=== PATIENT | male | born 1935 | race Caucasian/White ===

== ENCOUNTER 2017-02-03 23:42 | Emergency (ER) | payer MEDICARE, BC ==
[~2017-02-03] VITALS: Ht 180.3 cm; Wt 90.0 kg
[2017-02-03 23:57] VITALS: BP 128/72; PULSE 65; RESP 20; TEMP 98.3
[2017-02-03] MEDS ORDERED: ASPI81CH7 CHEW (23:57)
[2017-02-03] MEDS ORDERED: ALLO300T2 PO (23:57)
--- NOTE | 2017-02-04 00:20 | PD ---
HPI Chief Complaint: Laceration/Skin Injury Time Seen by Provider: 23:57 Travel History International Travel<30 days: No Contact w/Intl Traveler<30days: No Traveled to known affect area: No History of Present Illness HPI Diagnoses a 81-year-old male with a history of gout, who is visiting here from [place]. The patient was in the shower at his hotel when he slipped and fell and struck the back of in front of his head on a shelf outside the shower. The patient denies any loss of consciousness. He reports pain at the front and back of his head. He denies any neck pain. He denies any loss of consciousness. He denies any numbness or tingling of his extremities. He states his last tetanus shot was within 5 years. He does take an aspirin a day but denies any blood thinners. There are no other areas of pain or reported injuries. PFSH Past Medical History Diminished Hearing: Yes Gout: Yes Tetanus Vaccination: < 5 Years Influenza Vaccination: Yes Social History Alcohol Use: Yes (5 week) Tobacco Use: No Substance Use: No Allergies-Medications (Allergen,Severity, Reaction): Coded Allergies: No Known Allergies (Unverified , 02/03/17) Reported Meds & Prescriptions Reported Meds & Active Scripts Active Reported Allopurinol 300 Mg Tab 300 Mg PO DAILY Aspirin Children's (Aspirin) 81 Mg Chew 81 Mg CHEW DAILY Review of Systems Eyes: No: Diploplia, Blurred Vision HENT: Positive: Headaches, Lightheadedness (earlier.), No: Neck Stiffness, Neck Pain (stated occiput and forehead) Cardiovascular: No: Chest Pain or Discomfort, Palpitations Respiratory: No: Cough, Shortness of Breath Gastrointestinal: No: Nausea, Vomiting, Abdominal Pain Musculoskeletal: No: Weakness, Pain Neurologic: Positive: Dizziness (earlier.), Headache, No: Weakness, Focal Abnormalities, Change in Mentation, Sensory Disturbance Physical Exam Narrative GENERAL: Well developed well-nourished male in no acute respiratory distress. SKIN: Focused skin assessment warm/dry. HEAD: Normocephalic. Patient has a abrasion to his forehead. There is also a three-quarter centimeters laceration to the posterior occiput. EYES: No scleral icterus. No injection or drainage. ENT: No nasal bleeding or discharge. Mucous membranes pink and moist. NECK: Trachea midline. Supple. CARDIOVASCULAR: Regular rate and rhythm. No murmur appreciated. RESPIRATORY: No accessory muscle use. Clear to auscultation. Breath sounds equal bilaterally. GASTROINTESTINAL: Abdomen soft, non-tender, nondistended. MUSCULOSKELETAL: No obvious deformities. No clubbing. No cyanosis. No edema. NEUROLOGICAL: Awake and alert. No obvious cranial nerve deficits. Motor grossly within normal limits. Normal speech. PSYCHIATRIC: Appropriate mood and affect; insight and judgment normal. Data Data Last Documented VS Vital Signs Date Time Temp Pulse Resp B/P (MAP) Pulse Ox O2 Delivery O2 Flow Rate FiO2 02/04/17 01:24 68 20 114/58 (76) 98 Room Air 02/03/17 23:[address] Brain W/O Iv Contrast(Rout) (02/03/17 23:57) Ct Cerv Spine W/O Contrast (02/03/17 23:57) Complete Blood Count With Diff (02/03/17 23:57) Iv Access Insert/Monitor (02/03/17 23:57) Labs Laboratory Tests Test 02/04/17 00:05 White Blood Count 7.7 TH/MM3 Red Blood Count 4.26 MIL/MM3 Hemoglobin 14.3 GM/DL Hematocrit 40.8 % Mean Corpuscular Volume 95.6 FL Mean Corpuscular Hemoglobin 33.6 PG Mean Corpuscular Hemoglobin Concent 35.1 % Red Cell Distribution Width 13.1 % Platelet Count 149 TH/MM3 Mean Platelet Volume 8.9 FL Neutrophils (%) (Auto) 72.2 % Lymphocytes (%) (Auto) 16.1 % Monocytes (%) (Auto) 8.7 % Eosinophils (%) (Auto) 2.8 % Basophils (%) (Auto) 0.2 % Neutrophils # (Auto) 5.5 TH/MM3 Lymphocytes # (Auto) 1.2 TH/MM3 Monocytes # (Auto) 0.7 TH/MM3 Eosinophils # (Auto) 0.2 TH/MM3 Basophils # (Auto) 0.0 TH/MM3 CBC Comment DIFF FINAL Differential Comment MDM Medical Decision Making Medical Screen Exam Complete: Yes Emergency Medical Condition: Yes Differential Diagnosis Concussion versus intracranial hemorrhage versus scalp abrasion versus scalp laceration Narrative Course 81-year-old gentleman who presents after slipping and falling in the shower. Patient had a laceration to the back of his head. He has had a bruise to his midforehead. The patient has had the laceration repaired. He will not be placed on antibiotics as is it is very vascular. He's been ambulated throughout the department without difficulty. Diagnosis Primary Impression: Closed head injury Additional Impressions: posterior scalp laceration mechanical fall Additional Instructions: Keep wound clean and dry. Scalp diana removed in 5-7 days. Avoid heavy exertional activity. Return if feeling worse. Med/Other Pt SpecificInfo: Other (Head injury sheet) Disposition: 01 DISCHARGE HOME Condition: Stable Trevor Francis MD Feb 04, 2017 00:20
[2017-02-04 00:24] LABS: AUTOMATED NEUTROPHIL # 5.5 TH/MM3 (1.8-7.7); BASOPHIL % 0.2 % (0.0-2.0); EOSINOPHIL # 0.2 TH/MM3 (0-0.4); EOSINOPHIL % 2.8 % (0.0-4.0); HEMATOCRIT 40.8 % (39.0-51.0); HEMO FLAGS DIFF FINAL; LYMPH % 16.1 % (9.0-44.0); LYMPHOCYTE # 1.2 TH/MM3 (1.0-4.8); MEAN CELL VOLUME 95.6 FL (80.0-100.0); MEAN CORPUSCULAR HEMOGLOBIN 33.6 PG (27.0-34.0); MEAN CORPUSCULAR HGB CONC 35.1 % (32.0-36.0); MONO % 8.7 % (0.0-8.0); NEUT % 72.2 % (16.0-70.0); PLATELET COUNT 149 TH/MM3 (150-450); RED BLOOD COUNT 4.26 MIL/MM3 (4.50-5.90); RED CELL DISTRIBUTION WIDTH 13.1 % (11.6-17.2); WHITE BLOOD COUNT 7.7 TH/MM3 (4.0-11.0)
--- NOTE | 2017-02-04 00:54 | RADRPT ---
EXAM DATE/TIME: 02/04/2017 00:37 [facility] COMPARISON: No previous studies available for comparison. INDICATIONS : Trauma. Fall. Laceration back of head. RADIATION DOSE: 45.54 CTDIvol (mGy) MEDICAL HISTORY : None SURGICAL HISTORY : None. ENCOUNTER: Initial ACUITY: 1 day PAIN SCALE: 5/10 LOCATION: cranial TECHNIQUE: Multiple contiguous axial images were obtained of the head. Using automated exposure control and adj ustment of the mA and/or kV according to patient size, radiation dose was kept as low as reasonably a chievable to obtain optimal diagnostic quality images. DICOM format image data is available electro nically for review and comparison. FINDINGS: CEREBRUM: The ventricles are normal for age. No evidence of midline shift, mass lesion, hemorrhage or acute in farction. No extra-axial fluid collections are seen. POSTERIOR FOSSA: The cerebellum and brainstem are intact. The 4th ventricle is midline. The cerebellopontine angle i s unremarkable. EXTRACRANIAL: The visualized portion of the orbits is intact. There is mucosal disease in the ethmoid air cells zion aterally SKULL: The calvaria is intact. No evidence of skull fracture. CONCLUSION: 1. No evidence of acute intracranial pathology. No masses are identified. Sinus disease as above Yared Hoskins MD on February 04, 2017 at 0:52 Board Certified Radiologist. This report was verified electronically.
--- NOTE | 2017-02-04 00:58 | RADRPT ---
EXAM DATE/TIME: 02/04/2017 00:37 [facility] COMPARISON: No previous studies available for comparison. INDICATIONS : Trauma. Fall. RADIATION DOSE: 19.33 CTDIvol (mGy) MEDICAL HISTORY : None SURGICAL HISTORY : None. ENCOUNTER: Initial ACUITY: 1 day PAIN SCALE: 0/10 LOCATION: neck TECHNIQUE: Volumetric scanning of the cervical spine was performed. Multiplanar reconstructions in the sagittal, coronal and oblique axial planes were performed. Using automated exposure control and adjustment o f the mA and/or kV according to patient size, radiation dose was kept as low as reasonably achievable to obtain optimal diagnostic quality images. DICOM format image data is available electronically f or review and comparison. FINDINGS: CT of the cervical spine was performed in sagittal and axial planes. There is anterolisthesis likely related to facet arthritis at C5-C6 of 2-3 mm. There is multilevel disc space narrowing and marginal osteophyte formation maximal at C6-C7. 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 No focal areas of marrow replacement are identified. The cranioc ervical junction appears normal. C2-C3: There is osteophytic ridging along the posterior aspect of vertebral body. There is mild facet arthri tis bilaterally. The neural foramina are clear bilaterally. C3-C4: There is no evidence of disc protrusion or spinal canal stenosis. There is mild facet arthritis bilat erally. C4-C5: There is uncovertebral joint hypertrophy on left side. There is severe facet arthritis on the left. T he neural foramina are clear bilaterally. There is no significant spinal canal stenosis. C5-C6: There is osteophytic ridging asymmetric to the left. There is moderate facet arthritis on the left. T he neural foramina are clear bilaterally. C6-C7: There is osteophytic ridging along the posterior aspect of vertebral body. There is no significant sp inal canal stenosis. There is mild left sided neural foraminal narrowing. C7-T1: There is no evidence of disc protrusion or spinal canal stenosis. There is mild facet arthritis bilat erally. CONCLUSION: 1. Moderate degenerative changes as described above. There is no evidence of acute fracture. Yared Hoskins MD on February 04, 2017 at 0:54 Board Certified Radiologist. This report was verified electronically.
--- NOTE | 2017-02-04 01:19 | PD ---
Physical Exam Date Seen by Provider: Feb 04, 2017 Time Seen by Provider: 01:18 Narrative For full history and physical examination please see previous provider note. I was asked to repair laceration to the posterior scalp. Data Data Last Documented VS Vital Signs Date Time Temp Pulse Resp B/P (MAP) Pulse Ox O2 Delivery O2 Flow Rate FiO2 02/04/17 00:01 65 20 02/03/17 23:57 98.3 128/72 (90) Orders Orders Ct Brain W/O Iv Contrast(Rout) (02/03/17 23:57) Ct Cerv Spine W/O Contrast (02/03/17 23:57) Complete Blood Count With Diff (02/03/17 23:57) Iv Access Insert/Monitor (02/03/17 23:57) Labs Laboratory Tests Test 02/04/17 00:05 White Blood Count 7.7 TH/MM3 Red Blood Count 4.26 MIL/MM3 Hemoglobin 14.3 GM/DL Hematocrit 40.8 % Mean Corpuscular Volume 95.6 FL Mean Corpuscular Hemoglobin 33.6 PG Mean Corpuscular Hemoglobin Concent 35.1 % Red Cell Distribution Width 13.1 % Platelet Count 149 TH/MM3 Mean Platelet Volume 8.9 FL Neutrophils (%) (Auto) 72.2 % Lymphocytes (%) (Auto) 16.1 % Monocytes (%) (Auto) 8.7 % Eosinophils (%) (Auto) 2.8 % Basophils (%) (Auto) 0.2 % Neutrophils # (Auto) 5.5 TH/MM3 Lymphocytes # (Auto) 1.2 TH/MM3 Monocytes # (Auto) 0.7 TH/MM3 Eosinophils # (Auto) 0.2 TH/MM3 Basophils # (Auto) 0.0 TH/MM3 CBC Comment DIFF FINAL Differential Comment [facility] Medical Record Reviewed: Yes Supervised Visit with FIDEL: Yes Procedures Procedure Narrative LACERATION LOCATION: Posterior scalp LENGTH: 3 cm NUMBER OF STITCHES/DIANA: 5 diana REPAIR: The area of the laceration was prepped with Betadine and sterilely draped. The laceration was infiltrated with 1% lidocaine. The wound was copiously irrigated and explored without evidence of foreign body, tendon injury or neurovascular injury. The wound was closed using diana. This was a 1 layer repair. A sterile dressing was applied. The patient was advised to keep the dressing clean and dry. Patient tolerated the procedure well. Mira Oneill Feb 04, 2017 01:19
[2017-02-04 01:24] VITALS: BP 114/58; PULSE 68; RESP 20; O2SAT 98
== END 2017-02-04 02:21 | disposition home or self-care (01) ==
LOC: NEPE 23:42
DX: S01.01XA Laceration without foreign body of scalp, initial encounter (principal); M10.9 Gout, unspecified; W18.2XXA Fall in (into) shower or empty bathtub, initial encounter; Y93.E1 Activity, personal bathing and showering; Y92.59 Other trade areas as the place of occurrence of the external cause
CPT/HCPCS: 12002; 70450; 72125; 85025